=== PATIENT | female | born 1980 | race Hispanic/Latino ===

== ENCOUNTER 2016-10-03 06:44 | Emergency (ER) | payer OTHER ==
[~2016-10-03 06:44] MED LIST: AMITRIPTYLINE H25 MG PO; AMITRIPTYLINE50 MG PO; AMOXICILLIN875 MG PO; BISACODYL10 MG PR; CHILDREN'S ASPI81 M1; COMPAZINE10 M1 PO; CYMBALTA 30 MG30 MG PO; DILAUDID2 MG PO; Dilaudid PO; FERROUS SULFAT325 M1 PO; FLEXERIL 5MG TAB5 MG PO; FLUOXETINE HCL20 M2 PO; FLUOXETINE HCL20 M3 PO; HYDROMORPHONE HC2 M1 PO; HYDROMORPHONE HC2 MG PO; HYDROXYCHLOROQ200 M2 PO; LEXAPRO 10MG10 MG PO; LIDODERM 5% PAT1 PAT EXT; LOVENOX100 MG/1 M; LYRIC PO; LYRICA100 M1 PO; LYRICA100 MG PO; LYRICA25 MG PO; LYRICA50 M1 PO; LYRICA50 MG PO; MAG-OX 400400 MG PO; MEDROL DOSEPAK1 PAC PO; MIRALAX17 GM PO; MIRTAZAPINE15 M2 PO; MOTRIN 600 MG600 MG PO; NORVASC 10MG10 MG PO; ONDANSETRON4 M1 PO; OXYCODONE HCL15 MG PO; OXYCODONE HCL30 M1 PO; OXYCODONE HCL30 MG PO; OXYCODONE HYDRO10 M1 PO; OXYCONTIN10 M1; OXYCONTIN10 MG PO; OXYCONTIN15 MG PO; OXYCONTIN20 MG PO; OXYCONTIN60 M1; OXYCONTIN60 MG PO; PAROXETINE HY37.5 MG PO; PERCOCET 325 MG1 TA2 PO; PERCOCET 325 MG1 TAB PO; PRAVASTATIN SOD10 MG PO; PROTONIX40 M3 PO; ROXICODONE30 MG PO; ROXICODONE5 MG PO; SENOKOT S 50 MG1 TAB PO; Senokot S PO; VALIUM 10 MG. T10 MG PO; ZOFRAN ODT4 MG PO; ZOFRAN4 M1 PO; ZOFRAN4 M1 SL; lyrica PO
--- NOTE | 2016-10-03 08:10 | ED GI/GU/ABDOMINAL COMPLAINT ---
See Addendum History of Present Illness General Chief Complaint: General Adult Stated Complaint: "LUPUS FLARE-UP" Source: patient, old records Exam Limitations: no limitations Vital Signs & Intake/Output Vital Signs & Intake/Output Vital Signs Date Time Temp Pulse Resp B/P Pulse O2 O2 Flow FiO2 Ox Delivery Rate 10/03 0734 97.6 97 20 141/78 98 Room Air Allergies Coded Allergies: Penicillins (HIVES 12/26/15) Sulfa (Sulfonamide Antibiotics) (HIVES 12/26/15) morphine (RASH 12/26/15) metoclopramide (Mild, ANXIETY 12/27/15) Reconcile Medications Aspirin (Children's Aspirin) 81 MG TAB.CHEW BLOOD THINNER (Reported) Enoxaparin Sodium (Lovenox) 100 MG/1 ML SYRINGE BLOOD THINNER (Reported) Fluoxetine HCl 20 MG CAPSULE 1 CAP PO DAILY Depression (Reported) Hydromorphone HCl 2 MG TABLET 4 MG PO Q6-PRN PRN PAIN SCALE 7-10 (SEVERE) Hydroxychloroquine Sulfate 200 MG TABLET LUPUS (Reported) Oxycodone HCl (Oxycontin) 60 MG TAB.ER.12H PAIN (Reported) 60 MG DOSE LAST TAKEN 05/25/16 AT 830 AM Oxycodone HCl (Oxycontin) 10 MG TAB.ER.12H PAIN (Reported) Oxycodone HCl 30 MG TABLET 1 TAB PO 4XDP PRN pain Pantoprazole Sodium (Protonix) 40 MG TABLET.DR 1 TAB PO DAILY GI (Reported) Pregabalin (Lyrica) 50 MG CAPSULE 1 CAP PO DAILY PAIN (Reported) Pregabalin (Lyrica) 100 MG CAPSULE 1 CAP PO BID PAIN (Reported) Prochlorperazine Maleate (Compazine) 10 MG TABLET 1 TAB PO Q6P PRN nausea Triage Note: Pt presents to ER c/o of severe abdominal pain, nausea/vomitting, and hematuria. Pt states symptoms started 2 days ago Triage Nurses Notes Reviewed? yes ? N Is pt currently ? No HPI: Patient presents for evaluation of abdominal pain that began suddenly 2 days ago. Patient states it initially resolved and then came back again more severe this morning. She has had 4-5 episodes of non-bloody vomiting and has felt nauseous more or less constantly since onset of pain. She states that although she has no dysuria she thought she might have a little blood in the urine. She also states she's had a low-grade fever but denies diarrhea or rash. She is not sure if this is a lupus flare up or perhaps a kidney stone. She called her primary care physician who told her to come to the emergency department. She presents to [facility] because she states that she does not like [place] or [facility]'s. Past History Travel History Traveled to [facility] past 21 day No Medical History Any Pertinent Medical History? 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 Cancer(s): NONE [employer]/Reproductive: miscarriage, OVARIAN CYST TUBAL LIGATION Other Medical Hx: LUPUS, fibromyalgias History of MRSA: No History of VRE: No History of CDIFF: No Surgical History Surgical History: cholecystectomy, laminectomy, tubal ligation, DISCECTOMY LEFT URETERAL REIMPLANTATION R KNEE MINISCUS REPAIR X2 R ANKLE SURGERY Psychosocial History Who do you live with Significant Other Services at Home None What is your primary language Iraqi Tobacco Use: Quit >30 days ago Family History Family History, If Any: MOTHER (osteoarthritis back). FATHER (questionable lupus). Relation not specified for: FH: breast cancer Hx Contributory? No Review of Systems Review of Systems Constitutional: Reports: no symptoms. EENTM: Reports: no symptoms. Respiratory: Reports: no symptoms. Cardiovascular: Reports: no symptoms. GI: Reports: see HPI. Genitourinary: Reports: no symptoms. Musculoskeletal: Reports: no symptoms. Skin: Reports: no symptoms. Neurological/Psychological: Reports: no symptoms. Hematologic/Endocrine: Reports: no symptoms. Immunologic/Allergic: Reports: no symptoms. All Other Systems: Reviewed and Negative Physical Exam Physical Exam Gastrointestinal: SEE BELOW Comments: Gen.: Well-nourished, well-developed, no acute respiratory distress. Appears uncomfortable at times. Head: Normocephalic, atraumatic. Eyes: Normal inspection bilaterally Ears: Normal inspection bilaterally Nose: Normal inspection Throat/mouth : Moist mucosa Neck: Supple, full range of motion, no goiter Heart: Regular rate and rhythm, no murmurs rubs or gallops Lungs: Clear to auscultation bilaterally with normal air entry Chest: Nontender Back: Normal range of motion Abdomen: Soft, right upper quadrant abdominal tenderness with voluntary guarding but no rebound, nondistended, normal bowel sounds Extremities: Normal range of motion grossly, equal radial pulses, no cyanosis clubbing or edema Neurologic: Cranial nerves grossly intact, speech is clear Skin: warm and dry Psychiatric: Calm, cooperative, no apparent delusions or hallucinations Core Measures ACS in differential dx? No Severe Sepsis Present: No Septic Shock Present: No Progress Differential Diagnosis: RENAL COLIC, BILIARY COLIC, LUPUS FLAREUP, FUNCTIONAL ABDOMINAL PAIN SYNDROME Plan of Care: Orders Procedure Date/time Status LIPASE 10/03 858 Complete URINALYSIS 10/03 814 Complete COMPREHENSIVE METABOLIC PANEL 10/03 803 Complete CBC WITHOUT DIFFERENTIAL 10/03 803 Complete Laboratory Tests 10/03/16 0859: Anion Gap 14, Estimated GFR 51 L, BUN/Creatinine Ratio 27.5 H, Glucose 92, Calcium 9.2, Total Bilirubin 0.6, AST 29, ALT 60 H, Alkaline Phosphatase 139 H , Total Protein 8.0, Albumin 4.5, Globulin 3.5, Albumin/Globulin Ratio 1.3, Lipase 152, CBC w Diff NO MAN DIFF REQ, RBC 4.55, MCV 83.2, MCH 28.4, RDW 13.9, MPV 7.7, Gran % 42.6, Lymphocytes % 42.8, Monocytes % 8.9, Eosinophils % 5.2 H, Basophils % 0.5, Absolute Granulocytes 2.7, Absolute Lymphocytes 2.7, Absolute Monocytes 0.6, Absolute Eosinophils 0.3, Absolute Basophils 0, PUBS MCHC 34.1 10/03/16814: Lipase Cancelled 10/03/16 0803: Urine Color BLDY H, Urine Clarity HAZY H, Urine pH 6.5, Ur Specific [place] 1.025, Urine Protein TRACE H, Urine Ketones NEG, Urine Nitrite NEG, Urine Bilirubin NEG, Urine Urobilinogen 0.2, Ur Leukocyte Esterase NEG, Ur Microscopic SEDIMENT EXAMINED, Urine RBC >75 H, Urine WBC RARE, Ur Epithelial Cells FEW, Urine Hemoglobin LARGE H, Urine Glucose NEG Diagnostic Imaging: Discussed w/RAD: CT Scan. Radiology Impression: PATIENT: ALBIN SPRINGER PRESENT AGE: 36 PATIENT ACCOUNT NO: [id number] : 82 LOCATION: [facility] ORDERING PHYSICIAN: KERON CRUZ MD SERVICE DATE: 10/03/16 EXAM TYPE: CAT - CT ABD & PELVIS W/O IV CONTRAS EXAMINATION: CT ABDOMEN AND PELVIS WITHOUT CONTRAST CLINICAL INFORMATION: Right upper quadrant tenderness, history of renal colic, status post cholecystectomy COMPARISON: 05/24/2016 TECHNIQUE: Multidetector volumetric imaging was performed from the superior aspect of the liver through the pubic symphysis. Sagittal and coronal reformatted images were obtained on the technologist's workstation. DLP: 338.17 mGy-cm. FINDINGS: LUNG BASES: There is mild atelectasis at the right lung base. LIVER, GALLBLADDER, AND BILIARY TREE : The liver is normal in size, shape, and attenuation. No focal hepatic lesion or biliary ductal dilatation is present. Patient is status post cholecystectomy. PANCREAS: Unremarkable. SPLEEN: Unremarkable. ADRENAL GLANDS: Unremarkable. KIDNEYS AND URETERS: The kidneys are normal in size, shape, and attenuation. There is a redemonstrated 2.5 cm left upper pole renal cyst. No hydronephrosis, hydroureter, or calculi seen. No perinephric stranding. BLADDER: Unremarkable. GASTROINTESTINAL TRACT: Moderate volume of stool is present throughout the colon. No evidence of bowel obstruction or abnormal wall thickening. The appendix is nondilated. No free fluid or free air is seen. ABDOMINAL WALL: Small foci of subcutaneous gas in the right anterior abdominal wall are suspicious for sequelae of injection. LYMPH NODES: No lymphadenopathy is identified, though assessment is suboptimal in the absence of intravenous contrast. VASCULAR: An infrarenal IVC filter is present. PELVIC VISCERA: Grossly unremarkable. OSSEOUS STRUCTURES: There is degenerative change in the spine at L5-S1. IMPRESSION: 1. No acute intra-abdominal findings identified. Moderate volume of stool throughout the colon. 2. Small foci of subcutaneous gas in the anterior abdominal wall, presumably from subcutaneous injection. DICTATED BY: ANCA CHOWDARY MD DATE/TIME DICTATED:10/03/16957 ONLINE TRADER:FABRICIO DATE/TIME TRANSCRIBED:10/03/16957 CONFIDENTIAL, DO NOT COPY WITHOUT APPROPRIATE AUTHORIZATION. <Electronically signed in Other Vendor System> SIGNED BY: RICARDA URENAANCA 10/03/16 1012 Initial ED EKG: none Comments: 10/03/2016 10:11:37 AM I have updated Albin on her test results and avoid additional pain medication based on her hematuria and history of renal colic. 10:42AM PER [facility] AT [facility] (MISHA PAGE MD) PT WAS IN PAIN MANAGEMENT AND DISMISSED FROM THEM ([facility]). STILL BEING REFERRED TO PAIN MANAGEMENT. LAST PLAN AT [facility] ON Aug, [facility] FOLLOW UP FOR SUBOXONE. APPT Sep 4:15PM WITH PCP. Departure Departure Disposition: HOME OR SELF CARE Condition: Stable Clinical Impression Primary Impression: Abdominal pain Qualifiers: Abdominal location: right upper quadrant Qualified Code: R10.11 - Right upper quadrant pain Secondary Impressions: Hematuria Referrals: PATIENT HAS NO PRIMARY CARE DR (PCP/Family) Additional Instructions: Follow-up with your primary care physician at 4:15 on April 06 as scheduled. Continue your current medications. If any concerns or sudden worsening. Please note that there might be incidental findings in your evaluation that are unrelated to the current emergency department visit. Please notify your primary care doctor about this emergency department visit in order to obtain and review all of the testing performed so that these incidental findings can be monitored as needed. If you had an x-ray performed, please understand that some fractures may not be seen on the initial set of x-rays. If your symptoms persist you might need a repeat set of x-rays to check for such a fracture. If you had a laceration evaluated, please understand that foreign bodies such as glass or wood may not be visible to the naked eye or on plain x-rays. If the wound becomes red, swollen, increasingly more painful or if there is any drainage from the wound, please have it reevaluated by a physician for the possibility of a retained foreign body. Thank you for choosing the [facility] Emergency Department for your care. It was a pleasure to serve you today. Keron Cruz M.D. [facility] Departure Forms: Customer Survey General Discharge Information
[2016-10-03 09:11] LABS: ABSOLUTE BASOPHIL COUNT 0 /CUMM (0.0-0.2); ABSOLUTE EOSINOPHIL COUNT 0.3 /CUMM (0.0-0.7); ABSOLUTE GRANULOCYTE CT 2.7 /CUMM (1.4-6.5); ABSOLUTE LYMPH COUNT 2.7 /CUMM (1.2-3.4); ABSOLUTE MONOCYTE COUNT 0.6 /CUMM (0.10-0.60); BASOPHIL % 0.5 % (0.0-2.0); EOSINOPHIL % 5.2 % (0-5); GRANULOCYTE % 42.6 % (42.2-75.2); HEMATOCRIT 37.9 % (37-47); MEAN CORPUSCULAR HGB 28.4 PG (27.0-31.0); MEAN CORPUSCULAR HGB CONC 34.1 G/DL (33.0-37.0); MEAN CORPUSCULAR VOLUME 83.2 FL (81.0-99.0); MEAN PLATELET VOLUME 7.7 FL (7.4-10.4); PLATELET COUNT 103 /CUMM (130-400); RBC DISTRIBUTION WIDTH 13.9 % (11.5-14.5); RED BLOOD CELL CT 4.55 /CUMM (4.20-5.40); WHITE BLOOD CELL COUNT 6.2 /CUMM (4.8-10.8)
--- NOTE | 2016-10-03 10:12 | CT SCAN REPORT ---
EXAMINATION: CT ABDOMEN AND PELVIS WITHOUT CONTRAST CLINICAL INFORMATION: Right upper quadrant tenderness, history of renal colic, status post cholecystectomy COMPARISON: 05/24/2016 TECHNIQUE: Multidetector volumetric imaging was performed from the superior aspect of the liver through the pubic symphysis. Sagittal and coronal reformatted images were obtained on the technologist's workstation. DLP: 338.17 mGy-cm. FINDINGS: LUNG BASES: There is mild atelectasis at the right lung base. LIVER, GALLBLADDER, AND BILIARY TREE: The liver is normal in size, shape, and attenuation. No focal hepatic lesion or biliary ductal dilatation is present. Patient is status post cholecystectomy. PANCREAS: Unremarkable. SPLEEN: Unremarkable. ADRENAL GLANDS: Unremarkable. KIDNEYS AND URETERS: The kidneys are normal in size, shape, and attenuation. There is a redemonstrated 2.5 cm left upper pole renal cyst. No hydronephrosis, hydroureter, or calculi seen. No perinephric stranding. BLADDER: Unremarkable. GASTROINTESTINAL TRACT: Moderate volume of stool is present throughout the colon. No evidence of bowel obstruction or abnormal wall thickening. The appendix is nondilated. No free fluid or free air is seen. ABDOMINAL WALL: Small foci of subcutaneous gas in the right anterior abdominal wall are suspicious for sequelae of injection. LYMPH NODES: No lymphadenopathy is identified, though assessment is suboptimal in the absence of intravenous contrast. VASCULAR: An infrarenal IVC filter is present. PELVIC VISCERA: Grossly unremarkable. OSSEOUS STRUCTURES: There is degenerative change in the spine at L5-S1. IMPRESSION: 1. No acute intra-abdominal findings identified. Moderate volume of stool throughout the colon. 2. Small foci of subcutaneous gas in the anterior abdominal wall, presumably from subcutaneous injection.
[2016-10-03 11:59] VITALS: BP 130/62
[2017-01-25] MEDS ORDERED: MEDROL4 M2 PO
[2017-01-25] MEDS ORDERED: PERCOCET 5-3251 EACH PO
[2017-01-25] MEDS ORDERED: CYCLOBENZAPRINE5 M2 PO
== END 2016-10-03 11:58 ==
LOC: ERH 06:44
PROVIDERS: Emergency Medicine
DX: R10.11 Right upper quadrant pain (principal); R31.9 Hematuria, unspecified
CPT/HCPCS: 74176; 81001; 96374; 96375; J1885; J2405

== ENCOUNTER 2017-01-25 20:48 | Emergency (ER) | payer OTHER ==
[~2017-01-25] VITALS: Ht 170.2 cm; Wt 70.3 kg
[~2017-01-25 20:48] MED LIST changes: +CYCLOBENZAPRINE5 M2 PO; +MEDROL4 M2 PO; +PERCOCET 5-3251 EACH PO
--- NOTE | 2017-01-25 21:17 | ED MVC/FALL/TRAUMA COMPLAINT ---
History of Present Illness General Chief Complaint: General Adult Stated Complaint: "FAINTED AND FELL DOWNSTAIRS,BACK PAIN,HX S Source: patient, family, old records Exam Limitations: no limitations Vital Signs & Intake/Output Vital Signs & Intake/Output Vital Signs Date Time Temp Pulse Resp B/P B/P Pulse O2 O2 Flow FiO2 Mean Ox Delivery Rate 01/25 2340 98.7 89 18 133/85 100 Room Air 01/25 2239 98 Room Air 01/25 2108 98.1 112 18 134/92 97 Room Air ED Intake and Output 01/26 0000 01/25 1200 Intake Total Output Total Balance Patient 155 lb Weight Weight Reported by Patient Measurement Method Allergies Coded Allergies: Penicillins (HIVES 12/26/15) Sulfa (Sulfonamide Antibiotics) (HIVES 12/26/15) morphine (RASH 12/26/15) metoclopramide (Mild, ANXIETY 12/27/15) Reconcile Medications Aspirin (Children's Aspirin) 81 MG TAB.CHEW BLOOD THINNER (Reported) Cyclobenzaprine HCl 5 MG TABLET 1 TAB PO TIDPRN PRN PAIN Enoxaparin Sodium (Lovenox) 100 MG/1 ML SYRINGE BLOOD THINNER (Reported) Fluoxetine HCl 20 MG CAPSULE 1 CAP PO DAILY Depression (Reported) Hydromorphone HCl 2 MG TABLET 4 MG PO Q6-PRN PRN PAIN SCALE 7-10 (SEVERE) Hydroxychloroquine Sulfate 200 MG TABLET LUPUS (Reported) Methylprednisolone. (Medrol) 4 MG TAB.DS.PK 1 DP PO AD RADICULOPATHY 6 on day 1 then reduce by one tablet daily until gone Oxycodone HCl (Oxycontin) 60 MG TAB.ER.12H PAIN (Reported) 60 MG DOSE LAST TAKEN 05/25/16 AT 830 AM Oxycodone HCl (Oxycontin) 10 MG TAB.ER.12H PAIN (Reported) Oxycodone HCl 30 MG TABLET 1 TAB PO 4XDP PRN pain Oxycodone HCl/Acetaminophen (Percocet 5-325 MG Tablet) 5 MG-325 MG TABLET 1 TAB PO BID PRN PAIN Pantoprazole Sodium (Protonix) 40 MG TABLET.DR 1 TAB PO DAILY GI (Reported) Pregabalin (Lyrica) 50 MG CAPSULE 1 CAP PO DAILY PAIN (Reported) Pregabalin (Lyrica) 100 MG CAPSULE 1 CAP PO BID PAIN (Reported) Prochlorperazine Maleate (Compazine) 10 MG TABLET 1 TAB PO Q6P PRN nausea Triage Note: TRIAGE; PT TO ED S/P FALLING DOWN FLIGHT OF STAIRS PER PT. STATES SHE REMEMBERS SHE WAS AT THE TOP AND THEN WOKE UP AT THE BOTTOM OF THE STAIRS. STATES SHE HAS A HX OF SEIZURES. PT HAS EXTENSIVE MED HX. STATES SHE HAS A CHAKRABORTY AND LBP CURRENTLY. TAKEN IMMEDIATELY TO ROOM 3. Triage Nurses Notes Reviewed? yes Onset: Abrupt Duration: hour(s): (5 HRS AGO), constant Timing: recent history Severity: moderate, severe Severity Numbers: 10 Injuries/Fall Location: back Method of Injury: fall Loss of Consciousness: brief (seconds) Modifying Factors: Worsens With: movement. Associated Symptoms: DENIES : No Patient currently breastfeeds: No HPI: 36-year-old female with history of pulmonary embolism antiphospholipid syndrome lupus TIA CVA, chronic back pain for which she is no longer in pain management presents after she states she had a questionable syncopal episode versus seizure. She states she was approaching her stairs to walk down to go get the mail when she states the next thing she remembers she woke up at the base of the stairs complaining of moderate to severe lower back pain nonradiating. Patient denies history of similar symptoms in the past. She denies any prodromal dizziness light and his chest pain prior to the fall no history of similar episodes. The injury occurred approximate 5 hours prior to arrival. Her family states is been no change in mental status. She is also complaining of a mild to moderate headache no vision changes nausea or vomiting. She denies any neck or upper back pain chest pain pain with inspiration abdominal pain arm or leg pain. She took a Motrin prior to arrival. She ran out of her oxycodone yesterday (ROBINSON GREER) Past History Travel History Traveled to [place] past 21 day No Medical History Any Pertinent Medical History? 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 FATHER (questionable lupus). Relation not specified for: FH: breast cancer Hx Contributory? No (ROBINSON GREER) Review of Systems Review of Systems Constitutional: Reports: no symptoms, see HPI. All Other Systems: Reviewed and Negative Comments Review of systems: See HPI, All other systems negative. Constitutional, no chills no fever, no malaise HEENT: No visual changes no sore throat no congestion, no ear pain Cardiovascular: No chest pain , no palpitation , no orthopnea Skin: no rashes, no change in skin Respiratory: No dyspnea no cough no sputum no hemoptysis GI: No nausea no vomiting, no diarrhea, no bloating/constipation : No dysuria No hematuria Muscle skeletal: No joint pain, no joint swelling, back pain, no neck pain, Neurologic: No numbness no confusion, no headache Psych: No stress Heme/endocrine: No bruising no bleeding Immunology: No lymphadenopathy (ROBINSON GREER) Physical Exam Physical Exam General Appearance: well developed/nourished, no apparent distress, alert, awake Comments: Well-developed well-nourished person in no acute distress HEENT: Normal EENT exam; PERRL, EOMI, no nystagmus. HEAD is atraumatic. moist mucous membranes. Neck: Supple, no midline or paracervical tenderness normal range of motion without pain or tenderness Back: Bilateral paralumbar muscle tenderness palpation of midline tenderness no ecchymosis or signs of trauma no CVA tenderness. Full range of motion Cardiovascular: Regular rate and rhythms no murmurs rubs or gallops, normal JVP Respiratory: Chest nontender.There were no bony deformities, no asymmetry. No respiratory distress. Patient speaking in full complete sentences. Breath sounds clear to auscultation bilaterally: NO W/R/R Abdomen: Soft, nontender nondistended, no appreciable organomegaly. Normal bowel sounds. No rebound/guarding, No appreciable enlargement of the abdominal aorta, No ascites. Extremity: No edema, full range of motion of extremities, normal and equal pulses bilaterally, 5 out of 5 strength noted to bilateral upper and lower extremities negative straight leg raise bilaterally Neuro: Alert oriented x3, motor sensory normal, cranial nerves II through XII grossly intact. There were no obvious focal neurologic abnormalities. Skin: No appreciable rash on exposed skin, skin is warm and dry. Psych: Mood and affect is normal, memory and judgment is normal. Core Measures ACS in differential dx? Yes Severe Sepsis Present: No Septic Shock Present: No (MARZENA ORELLANA,ROBINSON) Progress Differential Diagnosis: abd injury, C/T/L spine injury, ext injury, ICH, pelvis injury, pnemothorax, spinal cord injury Plan of Care: Orders Procedure Date/time Status EKG 01/26 2132 Active PARTIAL THROMBOPLASTIN TIME 01/25 2127 Complete PROTHROMBIN TIME 01/25 2127 Complete PROLACTIN 01/25 2127 Complete HUMAN BETA HCG SCREEN 01/25 2127 Complete COMPREHENSIVE METABOLIC PANEL 01/25 2127 Complete CBC WITHOUT DIFFERENTIAL 01/25 2127 Complete Laboratory Tests 01/25/175: Anion Gap 15, Estimated GFR 57 L, BUN/Creatinine Ratio 14.5, Glucose 111 H, Calcium 9.3, Total Bilirubin 0.6, AST 28, ALT 20, Alkaline Phosphatase 130 H, Total Protein 8.2, Albumin 4.0, Globulin 4.2, Albumin/Globulin Ratio 1.0 L, Prolactin 26.3 H, Total Beta HCG NEGATIVE, PT 13.7 H, INR 1.31 H, APTT 85 H, CBC w Diff NO MAN DIFF REQ, RBC 4.45, MCV 74.1 L, MCH 24.7 L, RDW 14.4, MPV 7.0 L, Gran % 59.3, Lymphocytes % 29.2, Monocytes % 10.2 H, Eosinophils % 0.8, Basophils % 0.5, Absolute Granulocytes 4.2, Absolute Lymphocytes 2.1, Absolute Monocytes 0.7 H, Absolute Eosinophils 0.1, Absolute Basophils 0, PUBS MCHC 33.3 Labs ordered old records reviewed patient medicated Dilaudid Valium Benadryl IV IV fluids case discussed with Dr. Vanegas Repeat evaluation patient reports pain is improved however still present another repeat Dilaudid 1 mg IV ordered 01/26/2017 12:02:42 AM I discussed with the patient at length all of their results. I had an extensive conversation regarding need for close follow up with their primary care physician this week as well as return precautions. I answered all of their questions, they feel comfortable with the plan and follow-up care. pt ambulatory with steady gait by herself on discahrge I discussed the medications that they will receive with the patient. I gave them signs and symptoms that could indicate an adverse reaction. I have advised them to limit their activities until they can see how they respond to the medication. (MARZENA ORELLANA,ROBINSON) Diagnostic Imaging: Viewed by Me: Radiology Read, CT Scan. Discussed w/RAD: Radiology Read, CT Scan. Radiology Impression: PATIENT: ALBIN SPRINGER PRESENT AGE: 36 PATIENT ACCOUNT NO: [id number] : 82 LOCATION: [facility] ORDERING PHYSICIAN: ROBINSON ORELLANA SERVICE DATE: 01/25/17 EXAM TYPE: RAD - XRY- WRIST COMPLETE-LEFT EXAMINATION: XR WRIST, LEFT CLINICAL INFORMATION: Fall. Pain. COMPARISON: None TECHNIQUE: Four views of the left wrist. FINDINGS: The bones and soft tissues are normal. No fracture. Alignment is anatomic with normal joint spaces. No erosions or abnormal soft tissue calcifications. IMPRESSION: Normal left wrist. DICTATED BY: LAWANDA ROSENBERG MD DATE/TIME DICTATED: 01/25/172305 MOCCASIN SEWER:FABRICIO DATE/TIME TRANSCRIBED:01/25/172305 CONFIDENTIAL, DO NOT COPY WITHOUT APPROPRIATE AUTHORIZATION. <Electronically signed in Other Vendor System> SIGNED BY: LAWANDA ROSENBERG MD 01/25/170, PATIENT: ALBIN SPRINGER PRESENT AGE: 36 PATIENT ACCOUNT NO: [id number] : 82 LOCATION: [facility] ORDERING PHYSICIAN: ROBINSON ORELLANA SERVICE DATE: 01/25/17 EXAM TYPE: CAT - CT CERV SPINE WO IV CONTRAST ; CT HEAD WO IV CONTRAST EXAMINATION: CT HEAD WITHOUT CONTRAST CT CERVICAL SPINE WITHOUT CONTRAST CLINICAL INFORMATION: Trauma. COMPARISON: None. TECHNIQUE: Imaging was performed from the skull base to vertex without intravenous administration of contrast. In addition, helical noncontrast CT imaging was acquired through the cervical spine and source images were reviewed along with axial reconstructions and sagittal and coronal MPRs. DLP: 892.83 mGy-cm FINDINGS : HEAD: Old focal infarct with encephalomalacia in the right parietal lobe. No evidence of acute parenchymal lesion or infarct. No intracranial mass, hemorrhage, or midline shift is visualized. The ventricles and sulci are age- appropriate. No extra-axial collections are identified. The paranasal sinuses and mastoid air cells are well aerated. CERVICAL SPINE: There is no evidence of acute cervical spine fracture. Vertebral bodies remain normal in height, intervertebral disc spaces are preserved, and alignment is anatomic. Corticated osseous density which is a degenerative change at the C6-C7 disc level measuring 2 mm at the posterior margin of the disc. Minimal posterior vertebral body at the uncinate process spurring bilaterally at C5-C6. Degenerative disc height narrowing with endplate spurs of the vertebrae at T1-T2, T2-T3, T3-T4. No pre- or paravertebral soft tissue abnormality is identified. Limited assessment of the lung apices is unremarkable. IMPRESSION: 1. No acute intracranial pathology. 2. No CT evidence of acute cervical spine fracture or traumatic subluxation DICTATED BY: LAWANDA ROSENBERG MD DATE/TIME DICTATED:01/25/172336 MOCCASIN SEWER :FABRICIO DATE/TIME TRANSCRIBED:01/25/172336 CONFIDENTIAL, DO NOT COPY WITHOUT APPROPRIATE AUTHORIZATION. <Electronically signed in Other Vendor System> SIGNED BY: LAWANDA ROSENBERG MD 01/25/172346, PATIENT: ALBIN SPRINGER PRESENT AGE: 36 PATIENT ACCOUNT NO: [id number] : LOCATION: [facility] ORDERING PHYSICIAN: ROBINSON ORELLANA SERVICE DATE: EXAM TYPE: CAT - CT LUMB SPINE WO IV CONTRAST EXAMINATION: CT LUMBAR SPINE WITHOUT CONTRAST CLINICAL INFORMATION: Fall. Pain. COMPARISON: None TECHNIQUE: Axial images obtained through the lumbar spine. Coronal and sagittal reformatted images performed at the CT scanner DLP: 800.69 mGy-cm FINDINGS: No acute abnormality. No fracture of the vertebrae. Vertebrae have normal height and alignment. There is disc height narrowing with irregularity of endplates and subchondral sclerosis and endplate spurs at L5-S1. Facet joints are normal. No paraspinal hematoma or fluid collection. IVC filter present. IMPRESSION: No acute abnormality lumbar spine. Degenerative disc disease L5-S1 DICTATED BY: LAWANDA ROSENBERG MD DATE/TIME DICTATED:01/25/172343 MOCCASIN SEWER:FABRICIO DATE/TIME TRANSCRIBED:01/25/172343 CONFIDENTIAL, DO NOT COPY WITHOUT APPROPRIATE AUTHORIZATION. <Electronically signed in Other Vendor System> SIGNED BY: LAWANDA ROSENBERG MD 01/25/172349 Initial ED EKG: SINUS TACH AT 100, NO ACUTE st SEGMENT CHANGES NORMAL AXIS Prior EKG: unchanged (12/2014) (ROBINSON GREER) Departure Departure Time of Disposition: 2356 Disposition: HOME OR SELF CARE Condition: Stable Clinical Impression Primary Impression: Syncope Secondary Impressions: Fall, Low back strain Referrals: PATIENT HAS NO PRIMARY CARE DR (PCP/Family) Additional Instructions: Follow-up with your primary care physician on Friday as well as Thom pain management dR TALAVERA. percocet as directed for breakthrough pain is cautious is a narcotic highly addictive and will make you drowsy driving drinking alcohol while taking. Flexeril as directed Medrol dosepak as discussed this was sent to [facility] Departure Forms: Customer Survey General Discharge Information Prescriptions: Current Visit Scripts Oxycodone HCl/Acetaminophen (Percocet 5-325 MG Tablet) 1 TAB PO BID PRN PAIN #10 TAB Cyclobenzaprine HCl 1 TAB PO TIDPRN PRN PAIN #12 TAB Methylprednisolone. (Medrol) 1 DP PO AD #1 DP 6 on day 1 then reduce by one tablet daily until gone (ROBINSON GREER) PA/CRYSTAL FLAT GRINDER Co-Sign Statement Statement: ED Attending supervision documentation- [] I saw and evaluated the patient. I have also reviewed all the pertinent lab results and diagnostic results. I agree with the findings and the plan of care as documented in the PA's/CRYSTAL FLAT GRINDER's documentation. [X] I have reviewed the ED Record and agree with the PA's/CRYSTAL FLAT GRINDER's documentation. [] Additions or exceptions (if any) to the PAs/CRYSTAL FLAT GRINDER's note and plan are summarized below: [] (BRY URENA,PAM)
[2017-01-25 22:43] LABS: ABSOLUTE BASOPHIL COUNT 0 /CUMM (0.0-0.2); ABSOLUTE EOSINOPHIL COUNT 0.1 /CUMM (0.0-0.7); ABSOLUTE GRANULOCYTE CT 4.2 /CUMM (1.4-6.5); ABSOLUTE LYMPH COUNT 2.1 /CUMM (1.2-3.4); ABSOLUTE MONOCYTE COUNT 0.7 /CUMM (0.10-0.60); BASOPHIL % 0.5 % (0.0-2.0); EOSINOPHIL % 0.8 % (0-5); GRANULOCYTE % 59.3 % (42.2-75.2); MEAN CORPUSCULAR HGB 24.7 PG (27.0-31.0); MEAN CORPUSCULAR HGB CONC 33.3 G/DL (33.0-37.0); MEAN CORPUSCULAR VOLUME 74.1 FL (81.0-99.0); PLATELET COUNT 267 /CUMM (130-400); RBC DISTRIBUTION WIDTH 14.4 % (11.5-14.5); RED BLOOD CELL CT 4.45 /CUMM (4.20-5.40); WHITE BLOOD CELL COUNT 7.1 /CUMM (4.8-10.8)
[2017-01-25 22:59] LABS: PT 13.7 SEC (9.4-12.5); PTT 85 SEC (25-37)
--- NOTE | 2017-01-25 23:10 | RADIOLOGY REPORT ---
EXAMINATION: XR WRIST, LEFT CLINICAL INFORMATION: Fall. Pain. COMPARISON: None TECHNIQUE: Four views of the left wrist. FINDINGS: The bones and soft tissues are normal. No fracture. Alignment is anatomic with normal joint spaces. No erosions or abnormal soft tissue calcifications. IMPRESSION: Normal left wrist.
[2017-01-25 23:40] VITALS: BP 133/85
--- NOTE | 2017-01-25 23:47 | CT SCAN REPORT ---
EXAMINATION: CT HEAD WITHOUT CONTRAST CT CERVICAL SPINE WITHOUT CONTRAST CLINICAL INFORMATION: Trauma. COMPARISON: None. TECHNIQUE: Imaging was performed from the skull base to vertex without intravenous administration of contrast. In addition, helical noncontrast CT imaging was acquired through the cervical spine and source images were reviewed along with axial reconstructions and sagittal and coronal MPRs. DLP: 892.83 mGy-cm FINDINGS: HEAD: Old focal infarct with encephalomalacia in the right parietal lobe. No evidence of acute parenchymal lesion or infarct. No intracranial mass, hemorrhage, or midline shift is visualized. The ventricles and sulci are age-appropriate. No extra-axial collections are identified. The paranasal sinuses and mastoid air cells are well aerated. CERVICAL SPINE: There is no evidence of acute cervical spine fracture. Vertebral bodies remain normal in height, intervertebral disc spaces are preserved, and alignment is anatomic. Corticated osseous density which is a degenerative change at the C6-C7 disc level measuring 2 mm at the posterior margin of the disc. Minimal posterior vertebral body at the uncinate process spurring bilaterally at C5-C6. Degenerative disc height narrowing with endplate spurs of the vertebrae at T1-T2, T2-T3, T3-T4. No pre- or paravertebral soft tissue abnormality is identified. Limited assessment of the lung apices is unremarkable. IMPRESSION: 1. No acute intracranial pathology. 2. No CT evidence of acute cervical spine fracture or traumatic subluxation
--- NOTE | 2017-01-25 23:50 | CT SCAN REPORT ---
EXAMINATION: CT LUMBAR SPINE WITHOUT CONTRAST CLINICAL INFORMATION: Fall. Pain. COMPARISON: None TECHNIQUE: Axial images obtained through the lumbar spine. Coronal and sagittal reformatted images performed at the CT scanner DLP: 800.69 mGy-cm FINDINGS: No acute abnormality. No fracture of the vertebrae. Vertebrae have normal height and alignment. There is disc height narrowing with irregularity of endplates and subchondral sclerosis and endplate spurs at L5-S1. Facet joints are normal. No paraspinal hematoma or fluid collection. IVC filter present. IMPRESSION: No acute abnormality lumbar spine. Degenerative disc disease L5-S1
== END 2017-01-26 00:06 ==
LOC: ERH 20:48
PROVIDERS: Physician Assistant Medical
DX: S39.012A Strain of muscle, fascia and tendon of lower back, initial encounter (principal); R55 Syncope and collapse; R51 Headache; W10.9XXA Fall (on) (from) unspecified stairs and steps, initial encounter; Y93.89 Activity, other specified; Y92.009 Unspecified place in unspecified non-institutional (private) residence as the place of occurrence of the external cause
CPT/HCPCS: 73110-LT; 93005; 93010; 96365; 96375; J1200; J2405; J3360

== ENCOUNTER 2017-03-05 09:21 | Emergency (ER) | payer OTHER ==
[~2017-03-05] VITALS: Ht 170.2 cm; Wt 73.5 kg
--- NOTE | 2017-03-05 10:21 | ED GENERAL ADULT ---
History of Present Illness General Chief Complaint: General Adult Stated Complaint: SIB PCP FOR EVAL, PAIN ALL OVER Source: patient, family, old records Exam Limitations: no limitations Vital Signs & Intake/Output Vital Signs & Intake/Output Vital Signs Date Time Temp Pulse Resp B/P B/P Pulse O2 O2 Flow FiO2 Mean Ox Delivery Rate 03/05 1419 98.2 114 16 153/93 96 Room Air 03/05 1413 Room Air 03/05 0929 97.4 120 20 98 Room Air Allergies Coded Allergies: Penicillins (HIVES 12/26/15) Sulfa (Sulfonamide Antibiotics) (HIVES 12/26/15) morphine (RASH 12/26/15) metoclopramide (Mild, ANXIETY 12/27/15) Reconcile Medications Cyclobenzaprine HCl 5 MG TABLET 1 TAB PO TIDPRN PRN PAIN Enoxaparin Sodium (Lovenox) 100 MG/1 ML SYRINGE BLOOD THINNER (Reported) Fluoxetine HCl 20 MG CAPSULE 3 CAP PO DAILY Depression (Reported) Hydroxychloroquine Sulfate 200 MG TABLET 1 TAB PO BID LUPUS (Reported) Metoprolol Tartrate 25 MG TABLET 1 TAB PO BID HEART (Reported) Ondansetron (Zofran Odt) 4 MG TAB.RAPDIS 1 TAB SL TID PRN nausea Oxycodone HCl/Acetaminophen (Percocet 5-325 MG Tablet) 5 MG-325 MG TABLET 1 TAB PO Q6P PRN pain Prochlorperazine Maleate (Compazine) 10 MG TABLET 1 TAB PO Q6P PRN nausea Trazodone HCl 150 MG TABLET 1 TAB PO QPM SLEEP (Reported) Core Measure Meds Pre-Hospital Lovenox Triage Note: PT TO ED FOR PAIN ALL OVER AND BRUISING X A FEW DAYS. H/O LUPUS. STATES DIFFICULTY AMBULATING. SENT BY DOCTOR FOR ?ANEMIA OR ?LOW PLATELETS. ALSO C/O VOMITING. Triage Nurses Notes Reviewed? yes Onset: 1-2 days Duration: day(s):, constant, continues in ED Timing: recent history Injury Environment: home Severity: moderate, severe No Modifying Factors: none Associated Symptoms: chest pain LMP (ages 10-50): unknown : No Patient currently breastfeeds: No HPI: 1-2 days prior to admission patient complains of generalized body aches with nausea anorexia vomiting loose stools. She also complains of bilateral lower anterior chest pain described as sharp nonradiating worse with movement coughing. She also complains of chronic hematomas without resolution. She denies fever chills shortness breath headache dysuria. Past History Travel History Traveled to [place] past 21 day No Medical History Any Pertinent Medical History? 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 FATHER (questionable lupus). Relation not specified for: FH: breast cancer Hx Contributory? No Review of Systems Review of Systems Constitutional: Reports: see HPI, malaise. EENTM: Reports: no symptoms. Respiratory: Reports: no symptoms. Cardiovascular: Reports: see HPI, chest pain. GI: Reports: see HPI, abdominal pain, nausea, vomiting. Genitourinary: Reports: no symptoms. Musculoskeletal: Reports: see HPI, joint pain, muscle pain. Skin: Reports: see HPI. Neurological/Psychological: Reports: no symptoms. Hematologic/Endocrine: Reports: see HPI, bruising. Immunologic/Allergic: Reports: see HPI. All Other Systems: Reviewed and Negative Physical Exam Physical Exam General Appearance: well developed/nourished, alert, awake, anxious, moderate distress Head: atraumatic, normal appearance Eyes: Bilateral: normal appearance, PERRL, EOMI. Ears, Nose, Throat: normal pharynx, normal ENT inspection, hearing grossly normal Neck: normal inspection, supple, full range of motion, no midline tenderness Respiratory: normal breath sounds, chest non-tender, no respiratory distress, quiet respiration, lungs clear Cardiovascular: regular rate/rhythm, normal peripheral pulses, norml femoral pulses equa Peripheral Pulses: 4+ carotid (R), 4+ carotid (L) Gastrointestinal: normal bowel sounds, soft, non-tender, no organomegaly Back: normal inspection, normal range of motion, no vertebral tenderness Extremities: normal inspection, normal capillary refill, normal range of motion, no edema Neurologic/Psych: no motor/sensory deficits, awake, alert, oriented x 3, normal gait, normal mood/affect, 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 Skin: ecchymosis (generalized scattered), pallor Lymphatic: no anterior cervical toy Core Measures ACS in differential dx? No ASA ordered for poss ACS? No-ACS ruled out CVA/TIA Diagnosis: No Severe Sepsis Present: No Septic Shock Present: No Progress Differential Diagnoses I considered the following diagnoses in my evaluation of the patient: Anemia thrombocytopenia coagulopathy medication reaction viral syndrome gastroenteritis Lupus flare Plan of Care: Orders Procedure Date/time Status URINALYSIS 03/05 1003 Complete TROPONIN LEVEL 03/05 1003 Complete PARTIAL THROMBOPLASTIN TIME 03/05 1003 Complete PROTHROMBIN TIME 03/05 1003 Complete LIPASE 03/05 1003 Complete HIGH SENSITIVITY CRP 03/05 1003 Complete HUMAN BETA HCG SCREEN 03/05 1003 Complete WESTERGREN SED RATE 03/05 1003 Complete COMPREHENSIVE METABOLIC PANEL 03/05 1003 Complete CBC WITHOUT DIFFERENTIAL 03/05 1003 Complete Laboratory Tests 03/05/17 1255: Urine Color STRAW, Urine Clarity CLEAR, Urine pH 6.0, Ur Specific [place] <= 1.005, Urine Protein NEG, Urine Ketones NEG, Urine Nitrite NEG, Urine Bilirubin NEG, Urine Urobilinogen 0.2, Ur Leukocyte Esterase NEG, Ur Microscopic EXAM NOT REQUIRED, Urine Hemoglobin NEG, Urine Glucose NEG 03/05/17 1022: Anion Gap 12, Estimated GFR 51 L, BUN/Creatinine Ratio 18.3, Glucose 98, Calcium 9.6, Total Bilirubin 0.4, AST 20, ALT 37, Alkaline Phosphatase 112, Troponin I < 0.01, C-React Prot High Sens 1.6, Total Protein 7.5, Albumin 4.4, Globulin 3.1, Albumin/Globulin Ratio 1.4, Lipase 59, Total Beta HCG NEGATIVE, PT 12.1, INR 1.15, APTT 82 H, CBC w Diff NO MAN DIFF REQ, RBC 4.80, MCV 75.0 L, MCH 24.9 L, RDW 19.0 H, MPV 7.5, Gran % 67.5, Lymphocytes % 22.1, Monocytes % 8.1, Eosinophils % 1.9, Basophils % 0.4, Absolute Granulocytes 3.9, Absolute Lymphocytes 1.3, Absolute Monocytes 0.5, Absolute Eosinophils 0.1, Absolute Basophils 0, PUBS MCHC 33.1, ESR Westergren 26 H Initial ED EKG: none Departure Departure Time of Disposition: 1400 Disposition: HOME OR SELF CARE Condition: Stable Clinical Impression Primary Impression: Chronic pain syndrome Secondary Impressions: Nausea and vomiting in adult Referrals: PATIENT HAS NO PRIMARY CARE DR (PCP/Family) Departure Forms: Customer Survey General Discharge Information Prescriptions: Current Visit Scripts Ondansetron (Zofran Odt) 1 TAB SL TID PRN nausea #15 TAB Oxycodone HCl/Acetaminophen (Percocet 5-325 MG Tablet) 1 TAB PO Q6P PRN pain #15 TAB Critical Care Note Critical Care Note Critical Care Time: non-applicable
--- NOTE | 2017-03-05 10:33 | RADIOLOGY REPORT ---
EXAMINATION: XR PORTABLE CHEST CLINICAL INFORMATION: History of lupus. Chest pain and cough. COMPARISON: CT chest 05/24/2015. TECHNIQUE: Portable frontal view of the chest was obtained. FINDINGS: The left cardiac border is slightly indistinct which may indicate the presence of lingular airspace disease. Otherwise no overt consolidation. There is stable blunting of the right lateral costophrenic recess. No overt pleural effusion or pneumothorax. Upper mediastinal contours are normal. No acute osseous finding. IMPRESSION: An indistinct left cardiac border may indicate the presence of lingular airspace disease. Pneumonia cannot be definitively excluded on the basis of this examination.
[2017-03-05] MEDS ORDERED: METOPROLOL TART25 M1 PO (10:34)
[2017-03-05 10:36] LABS: ABSOLUTE BASOPHIL COUNT 0 /CUMM (0.0-0.2); ABSOLUTE EOSINOPHIL COUNT 0.1 /CUMM (0.0-0.7); ABSOLUTE GRANULOCYTE CT 3.9 /CUMM (1.4-6.5); ABSOLUTE LYMPH COUNT 1.3 /CUMM (1.2-3.4); ABSOLUTE MONOCYTE COUNT 0.5 /CUMM (0.10-0.60); BASOPHIL % 0.4 % (0.0-2.0); EOSINOPHIL % 1.9 % (0-5); GRANULOCYTE % 67.5 % (42.2-75.2); MEAN CORPUSCULAR HGB 24.9 PG (27.0-31.0); MEAN CORPUSCULAR HGB CONC 33.1 G/DL (33.0-37.0); MEAN PLATELET VOLUME 7.5 FL (7.4-10.4); PLATELET COUNT 148 /CUMM (130-400); WHITE BLOOD CELL COUNT 5.9 /CUMM (4.8-10.8)
[2017-03-05] MEDS ORDERED: TRAZODONE HCL150 M1 PO (10:36)
[2017-03-05 10:39] LABS: PT 12.1 SEC (9.4-12.5); PTT 82 SEC (25-37)
[2017-03-05] MEDS ORDERED: ZOFRAN ODT4 M1 SL (13:53)
[2017-03-05] MEDS ORDERED: PERCOCET 5-3251 EACH PO (14:12)
[2017-03-05 14:19] VITALS: BP 153/93
== END 2017-03-05 14:25 ==
LOC: ERH 09:21
PROVIDERS: Emergency Medicine
DX: G89.4 Chronic pain syndrome (principal); R11.2 Nausea with vomiting, unspecified
CPT/HCPCS: 81003; 96372; J3101